=== PATIENT | male | born 1995 | race Caucasian/White ===

== ENCOUNTER 2019-09-27 23:53 | Emergency (ER) | payer BC ==
[2019-09-28] MEDS ORDERED: Acetaminophen 325 MG Tab PO ONE (00:03)
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
[2019-09-28 00:37] LABS: CHLORIDE,CL 101 mmol/L (98-107); SODIUM,NA 141 mmol/L (136-145)
[2019-09-28] MEDS ORDERED: Amoxicillin/Clavulanate K 875-125 MG Tab PO ONE (00:51)
== END 2019-09-28 01:25 | disposition home or self-care (01) ==
LOC: LL.ED 23:53
DX: K21.9 Gastro-esophageal reflux disease without esophagitis (principal); J40 Bronchitis, not specified as acute or chronic; Z71.6 Tobacco abuse counseling; R74.0 Nonspecific elevation of levels of transaminase and lactic acid dehydrogenase [LDH]; J02.9 Acute pharyngitis, unspecified; E66.9 Obesity, unspecified; F17.210 Nicotine dependence, cigarettes, uncomplicated
CPT/HCPCS: 36415; 71046; 80053; 83605; 85025; 85379; 87040; 87430; 87804; 99285; A9270

== ENCOUNTER 2022-11-11 02:04 | Emergency (ER) | payer BC, OTHER ==
[2022-11-11] MEDS ORDERED: Ketorolac 30 MG/ML SDV IM ONE (02:33)
[2022-11-11] MEDS ORDERED: cefTRIAXone 1 GM Vial IM ONE (02:33)
[2022-11-11] MEDS ORDERED: Lidocaine 1% 5 ML VIAL INJECT ONE (02:34)
== END 2022-11-11 03:05 | disposition home or self-care (01) ==
LOC: LL.ED 02:04
DX: H65.02 Acute serous otitis media, left ear (principal); J45.909 Unspecified asthma, uncomplicated; K21.9 Gastro-esophageal reflux disease without esophagitis; E66.9 Obesity, unspecified; Z68.41 Body mass index [BMI] 40.0-44.9, adult; Z72.0 Tobacco use; Z79.899 Other long term (current) drug therapy
CPT/HCPCS: 96372; 99282; 99283; J0696; J1885; J3490